=== PATIENT | female | born 1960 | race Caucasian/White ===

== ENCOUNTER 2017-09-11 13:49 | Emergency (ER) | payer OTHER ==
[~2017-09-11] VITALS: Ht 165.1 cm; Wt 60.0 kg
[~2017-09-11 13:49] MED LIST: Z.0.NO CURRENT MEDS
[2017-09-11 14:01] VITALS: BP 122/83; PULSE 83; RESP 16; TEMP 98.2; O2SAT 97
--- NOTE | 2017-09-11 15:04 | PD ---
HPI Chief Complaint: Injury Time Seen by Provider: 14:48 Travel History International Travel<30 days: No Contact w/Intl Traveler<30days: No Traveled to known affect area: No History of Present Illness HPI 57 -year-old female here with right forearm and right thigh pain after a shopping cart ran into right side while at [employer]. She did not fall to the ground. She remained standing during the injury. The pain is mild and aggravated by palpation of the area. No difficulty ambulating. PFSH Past Medical History Medical History: Denies Significant Hx Cancer: No Diabetes: No Glaucoma: No Hepatitis: No Hiatal Hernia: No Hypertension: No Thyroid Disease: No Past Surgical History Gynecologic Surgery: Yes (TUBAL LIGATION; HYSTERECTOMY) Pacemaker: No Social History Alcohol Use: No Tobacco Use: Yes (1 PPD) Substance Use: No Allergies-Medications (Allergen,Severity, Reaction): Coded Allergies: No Known Allergies (Verified Adverse Reaction, Unknown, 09/11/17) Reported Meds & Prescriptions Reported Meds & Active Scripts Active Reported No Current Meds (Miscellaneous Medication) Misc Review of Systems Except as stated in HPI: all other systems reviewed are Neg Physical Exam Narrative GENERAL: Alert well-appearing female. SKIN: Warm and dry. No areas of ecchymosis or abrasions. HEAD: Normocephalic. Atraumatic EYES: No injection or drainage. NECK: Supple, trachea midline. CARDIOVASCULAR: Regular rate and rhythm RESPIRATORY: Breath sounds equal bilaterally. No accessory muscle use. GASTROINTESTINAL: Abdomen soft, non-tender, nondistended. MUSCULOSKELETAL: No cyanosis, or edema. Mild tenderness to the soft tissue the right forearm right lateral thigh. No bony tenderness. No deformity. Full range of motion. 2+ distal pulses of the extremities. Brisk cap refill. BACK: Nontender without obvious deformity. No CVA tenderness. Data Data Last Documented VS Vital Signs Date Time Temp Pulse Resp B/P (MAP) Pulse Ox O2 Delivery O2 Flow Rate FiO2 09/11/17 14:12 Room Air 09/11/17 14:01 98.2 83 16 122/83 (96) 97 Orders Orders Ed Discharge Order (09/11/17 15:04) MDM Medical Decision Making Medical Screen Exam Complete: Yes Emergency Medical Condition: Yes Differential Diagnosis Contusion, fracture Narrative Course 57 -year-old female here with right forearm, right hip, pain after he shopping cart ran into right side while at [employer]. Her physical exam is reassuring. She has mild tenderness of the soft tissue. No deformity. No abrasions. No ecchymosis. Diagnosis Primary Impression: Contusion Qualified Codes: S80.11XA - Contusion of right lower leg, initial encounter Referrals: [facility] Additional Instructions: Rest, ice, elevate the extremity. Take [id number] Tylenol or Motrin as needed for pain. Disposition: 01 DISCHARGE HOME Condition: Stable Zainab Edge Sep 11, 2017 15:04
== END 2017-09-11 15:22 | disposition home or self-care (01) ==
LOC: PHEFT 13:49
DX: S80.11XA Contusion of right lower leg, initial encounter (principal); F17.200 Nicotine dependence, unspecified, uncomplicated; W22.8XXA Striking against or struck by other objects, initial encounter; Y92.512 Supermarket, store or market as the place of occurrence of the external cause
CPT/HCPCS: 99282